=== PATIENT | female | born 1990 | race African-American/Black ===

== ENCOUNTER 2024-11-12 21:03 | Emergency (ER) | payer OTHER ==
[~2024-11-12] VITALS: Ht 157.5 cm; Wt 110.0 kg
[2024-11-12 21:15] VITALS: TEMP 37; O2SAT 99
[2024-11-12] MEDS: ONDANSETRON HCL 4MG TABLET PO ONE (22:00)
[2024-11-12] MEDS: PREDNISONE 20MG TABLET PO ONE (23:02)
[2024-11-12] MEDS: FAMOTIDINE 20MG TABLET PO ONE (23:02)
[2024-11-12 23:47] LABS: CLARITY URINE CLEAR (CLEAR); COLOR URINE YELLOW (YELLOW); GLUCOSE URINE NEGATIVE (NEGATIVE); KETONES URINE NEGATIVE (NEGATIVE); LEUKOCYTE ESTERASE URINE NEGATIVE (NEGATIVE); NITRITE URINE NEGATIVE (NEGATIVE); OCCULT BLOOD URINE NEGATIVE (NEGATIVE); PH URINE 6.5 (4.5-8.0); PROTEIN URINE NEGATIVE (NEGATIVE); SPECIFIC GRAVITY URINE 1.002 (1.005-1.030); UROBILINOGEN URINE 0.2 E.U./dL (0.2-1.0)
[2024-11-13] MEDS ORDERED: DIPH25TA62 MT (00:09)
[2024-11-13] MEDS ORDERED: P20 MT (00:09)
[2024-11-13] MEDS ORDERED: FAMO-135 MT (00:09)
[2024-11-13] MEDS ORDERED: EPIN0.3P3 IM (00:09)
[2024-11-13 00:11] VITALS: BP 128/78; PULSE 84; RESP 20; O2SAT 26
[2024-11-13] MEDS ORDERED: ONDA4TAB50 MT (00:17)
== END 2024-11-13 00:12 | disposition home or self-care (01) ==
LOC: ER 21:03
DX: T78.01XA Anaphylactic reaction due to peanuts, initial encounter (principal); Z79.52 Long term (current) use of systemic steroids; Z88.0 Allergy status to penicillin; Z88.5 Allergy status to narcotic agent; Y92.89 Other specified places as the place of occurrence of the external cause
CPT/HCPCS: 99284; 81003; 81025; Q0162; J7512